=== PATIENT | female | born 1975 | race Caucasian/White ===

== ENCOUNTER 2019-01-15 12:36 | Outpatient (REF) | payer MEDICAID, SELFPAY ==
[2019-01-15 13:43] LABS: HCT 40.1 % (36.0-46.0); HGB 13.4 g/dL (12.0-15.5); Mean Corp. HGB Concentration 33.4 g/dL (32.0-36.0); Mean Corpuscular Hemoglobin 32.4 pg (27.0-33.0); Mean Corpuscular Volume 96.9 fL (80-95); Mean Platelet Volume 10.7 fL (8.0-11.0); Platelet Count 388 x1000/uL (130-400); RBC 4.14 m/cumm (4.00-5.20); RBC Distribution Width 12.7 % (11.7-14.6); White Blood Cell Count 8.16 k/cumm (4.4-10.8)
[2019-01-15 14:20] LABS: ALT 19 U/L (14-59); AST 17 U/L (15-37); Albumin 3.9 g/dL (3.4-5.0); Alkaline Phosphatase 77 U/L (46-116); BUN 7 mg/dL (7-18); Bilirubin, Total 0.3 mg/dL (0.2-1.0); CREATININE 0.78 mg/dL (0.55-1.02); Calcium 8.9 mg/dL (8.5-10.1); Calculated LDL 107 mg/dL; Chloride 103 mmol/L (98-107); Cholesterol 183 mg/dL (50-200); Glucose 90 mg/dL (70-100); HDL Cholesterol 64 mg/dL (40-60); Potassium 4.6 mmol/L (3.5-5.1); Sodium 141 mmol/L (136-145); Total Protein 6.7 g/dL (6.4-8.2); Triglyceride 60 mg/dL (30-150)
== END 2019-01-15 12:56 ==
LOC: NCHCN 12:36
PROVIDERS: PCP Nurse Practitioner Family; Visit Provider Nurse Practitioner Family
DX: Z00.00 Encounter for general adult medical examination without abnormal findings (principal); N92.0 Excessive and frequent menstruation with regular cycle
CPT/HCPCS: 80053; 80061; 85027

== ENCOUNTER 2020-09-15 09:02 | Outpatient (REF) | payer MEDICAID, SELFPAY ==
--- NOTE | 2020-09-15 08:30 | PAPFT_PTH ---
PATIENT: Maria G Morataya LOC: NCN #:[id number] AGE/SX: 44/F ROOM: RE09/15/[address]: Dora Jose : 1975 BED: DIS: 09/15/2020 SPEC #: [id number] RECD: 09/15/20 17:56 STATUS: ABRAHAM KAMARA #: [id number] LUCÍA: 09/15/20 08:[address]: Dora Jose DEPT: [facility] Cytology RECD BY: Rhonda Brown ENTERED: 09/15/20 17:56 SP TYPE: PAPFT OTHR DR: Madeline Jacobs Tissues: 1 - CX/ENDOCX FOR PAP SMEARS Procedures: PAP THIN PREP/[facility] Screening Comments: [id number]
== END 2020-09-15 09:03 | disposition home or self-care (01) ==
LOC: NCHCN 09:02
PROVIDERS: PCP Nurse Practitioner Family; Visit Provider Nurse Practitioner Family
DX: Z12.4 Encounter for screening for malignant neoplasm of cervix
CPT/HCPCS: 88142